=== PATIENT | male | born 1965 | race Caucasian/White ===

== ENCOUNTER 2018-09-20 09:05 | Outpatient (CLI) | payer OTHER | END 2018-09-21 14:46 | disposition home or self-care (01) | LOC: MRI 09:05 | DX: M50.10 Cervical disc disorder with radiculopathy, unspecified cervical region (principal) | CPT/HCPCS: 72141 ==

== ENCOUNTER → 2020-05-31 | Outpatient (CLI) | payer OTHER | END | disposition home or self-care (01) | LOC: SONOGRAMA 08:33 | DX: M77.32 Calcaneal spur, left foot (principal); M72.2 Plantar fascial fibromatosis ==

== ENCOUNTER 2022-05-28 06:49 | Outpatient (CLI) | payer OTHER | END 2022-05-28 07:15 | disposition home or self-care (01) | LOC: MRI 06:49 | DX: M50.20 Other cervical disc displacement, unspecified cervical region (principal) | CPT/HCPCS: 72141 ==